=== PATIENT | male | born 1975 | race Two or more races ===

== ENCOUNTER 2024-06-30 11:09 | Emergency (ER) | payer BC, OTHER ==
[~2024-06-30] VITALS: Ht 172.7 cm; Wt 91.5 kg
[2024-06-30 11:20] VITALS: BP 157/95; PULSE 69; RESP 20; O2SAT 97
== END 2024-06-30 15:04 | disposition home or self-care (01) ==
LOC: ER 11:09
DX: S02.2XXA Fracture of nasal bones, initial encounter for closed fracture (principal); W18.39XA Other fall on same level, initial encounter; Y93.89 Activity, other specified; Y92.89 Other specified places as the place of occurrence of the external cause; Y99.8 Other external cause status